=== PATIENT | female | born 1985 | race Caucasian/White ===

== ENCOUNTER 2016-07-19 06:27 | Emergency (ER) | payer OTHER ==
--- NOTE | ~2016-07-19 | EKG ---
PATIENT: CARLY CARDOSO UNIT #: [id number] Ventricular Rate: 104 BPM Atrial Rate: 117 BPM P-R Interval: 124 ms QRS Duration: 78 ms Q-T Interval: 336 ms QTC Calculation(Bezet): 441 ms P [place]: 60 degrees Calculated R [place]: 70 degrees Calculated T [place]: 63 degrees Diagnosis Line: Sinus tachycardia Diagnosis Line: Nonspecific ST abnormality Inferior leads Lateral Diagnosis Line: leads Diagnosis Line: Abnormal ECG Diagnosis Line: No previous ECGs available Diagnosis Line: Confirmed by OWEN REDDY MD ([id number]) on 07/20/2016 Diagnosis Line: 3:29:16 PM INTERPRETING MD: MAUREEN MCKEON
--- NOTE | ~2016-07-19 | CR72 ---
[facility] A Service [facility] RADIOLOGY TEXT RESULTS PATIENT: CARLY CARDOSO LOCATION: [facility] : [birth year] UNIT #: [id number] AGE: [address]: Chanel Schmitz MD SEX: F ORDER DR: [id number] [facility] [address] [place], [place] [address] [id number] E MR#: [id number] #: [id number] NAME: CARLY CARDOSO : 1985 SEX: F STUDY DATE/TIME: 07/19/2016 5:52 UNIT: [facility] ROOM: STUDY DESCRIPTION: CR Chest Single View Portable Attending Physician: Chanel Schmitz M.D. Ordering Physician: Chanel Schmitz M.D. Primary Care Physician: Martha Landaverde Aprn MEDICAL IMAGING REPORT This report is preliminary unless electronic signature is present EXAM Chest x-ray portable HISTORY Shortness of air and wheezing, started tonight. History of asthma, chest congestion. COMMENT Single frontal portable view of the chest timed 0552 on 05/21/2016. COMPARISON Compared to 11/10/2013. FINDINGS Cardiac silhouette is within normal limits. There is patchy infiltrate at the left base, new from prior. There is mild interstitial edema. Mild thickening of the peribronchovascular soft tissues in general. This is also new from prior. Please correlate for clinical evidence of bronchitis with associated pneumonia or atelectasis related to mucous plugging in the setting of asthma. Heart size normal. No pleural effusion. No pneumothorax. IMPRESSION 1. Patchy airspace disease left lung base. This could be some early pneumonia or aspiration or alternatively some atelectasis due to mucous plugging in the setting of asthma. There is some interstitial prominence and thickening of the central peribronchovascular soft tissues. Followup to complete clearing recommended. Dictated by... Neeta Mancia M.D. [facility] A Service [facility] RADIOLOGY TEXT RESULTS PATIENT: CARLY CARDOSO LOCATION: [facility] : [birth year] UNIT #: [id number] AGE: [address]: Chanel Schmitz MD SEX: F ORDER DR: THIS IS AN ELECTRONICALLY VERIFIED REPORT Neeta Mancia M.D. at 07/19/2016 9:36 AM JAY JAY/monica TD: 07/19/2016 08:14 JOB #: [id number] MEDICAL IMAGING REPORT Page 1 of 1 COPY
[2016-07-19 06:16] LABS: POC - CKMB 4.1 ng/mL (0.0-7.9); POC - TROPONIN <0.05 ng/mL (<=0.05)
[2016-07-19 06:16] LABS: URINE SOURCE CLEAN CATCH
[~2016-07-19 06:27] MED LIST: ACETAMINOPHEN PO; AMOXICILLIN PO; KETOPROFEN PO; PERIDEX480 ML PO; TYLENOL #3 PO; ZITHROMAX1 G/PKT PO
[2016-07-19 06:29] LABS: BASOPHIL# 0.1 X10e3 (0-0.3); BASOPHIL% 0.9 % (0-2.5); EOSINOPHIL# 0.1 X10e3 (0-0.7); EOSINOPHIL% 0.6 % (0.0-7.0); HEMATOCRIT 41.6 % (35.0-45.0); HEMOGLOBIN 13.7 gm/dL (12.0-16.0); LYMPHOCYTE# 2.9 X10e3 (1.0-3.5); LYMPHOCYTE% 27.4 % (17.0-45.0); MEAN CELL VOLUME 84.7 FL (83-96); MEAN CORPUSCULAR HEMOGLOBIN 27.8 PG (28-34); MEAN CORPUSCULAR HGB CONC 32.9 g/dL (30-36); MEAN PLATELET VOLUME 8.9 FL (6.5-11.5); MONOCYTE# 0.5 X10e3 (0-1.0); MONOCYTE% 4.6 % (3.0-12.0); NEUTROPHIL# 7.1 X10e3 (1.5-7.1); NEUTROPHIL% 66.5 % (40-75); PLATELET COUNT 422 X10e3 (140-420); RED BLOOD COUNT 4.92 X10e (3.90-5.30); RED CELL DISTRIBUTION WIDTH 14.3 % (11.0-15.5); WHITE BLOOD COUNT 10.7 X10e3 (4.0-10.5)
[2016-07-19 06:31] LABS: DIFF IND NO
[2016-07-19 06:38] LABS: CULTURE INDICATED? YES; URBCS1 AUWI 0-2 /[HPF] (0-2); URINE APPEARANCE CLEAR; URINE BACTERIA AUWI NEG (NEGATIVE); URINE BILIRUBIN NEG (NEG); URINE BLOOD NEG (NEG); URINE COLOR YELLOW; URINE GLUCOSE NEG (NEG); URINE KETONE NEG (NEG); URINE LEUKOCYTE ESTERASE TRACE (NEG); URINE NITRATE NEG (NEG); URINE PH 5.5 (5-8); URINE PROTEIN NEG (NEG); URINE SPECIFIC GRAVITY 1.005 (1.003-1.035); URINE SQUAMOUS EPITHELIAL CELL NONE SEEN /[HPF]; URINE UROBILINOGEN 0.2 MG/DL (NEG)
[2016-07-19 06:42] LABS: AMPHETAMINE POS (NEG); BARBITURATES NEG (NEG); BENZODIAZEPINES POS (NEG); COCAINE NEG (NEG); MARIJUANA POS (NEG); OPIATES POS (NEG); TRICYCLIC ANTIDEPRESSANTS NEG (NEG); U METHADONE NEG (NEG)
[2016-07-19 06:59] LABS: ALBUMIN SERUM 4.4 g/dL (3.5-5.0); BILIRUBIN, DIRECT 0.1 mg/dL (0.0-0.2); BILIRUBIN,INDIRECT 0.2 mg/dL (0.0-0.9); BILIRUBIN,TOTAL 0.3 mg/dL (0.2-2.0); BUN/CREATININE RATIO 8.88; CALCIUM SERUM 9.9 mg/dL (8.4-10.2); CREATININE SERUM 0.9 mg/dL (0.6-1.4); GLOM FILT RATE Estimated 86.5 mL/min (>60); POTASSIUM 3.1 mmol/L (3.5-5.1); PROTEIN TOTAL SERUM 8.3 g/dL (6.0-8.3)
== END 2016-07-19 07:14 | disposition home or self-care (01) ==
LOC: CED 06:27
PROVIDERS: Emergency Medicine
DX: F19.10 Other psychoactive substance abuse, uncomplicated (principal)
CPT/HCPCS: 36415; 71010; 80048; 80076; 80307; 81003; 82553; 84484; 84703; 85025; 87086; 93005; 99284

== ENCOUNTER 2016-07-31 16:02 | Emergency (ER) | payer OTHER ==
[2016-07-31 16:48] LABS: INFLUENZA A NEG (NEG); INFLUENZA B NEG (NEG)
== END 2016-07-31 17:00 | disposition home or self-care (01) ==
LOC: CFTX 16:02
PROVIDERS: Physician Assistant
DX: J06.9 Acute upper respiratory infection, unspecified (principal); J45.909 Unspecified asthma, uncomplicated; F31.9 Bipolar disorder, unspecified; G47.00 Insomnia, unspecified; F17.210 Nicotine dependence, cigarettes, uncomplicated; Z98.51 Tubal ligation status
CPT/HCPCS: 87651; 87804; 99282

== ENCOUNTER 2016-10-12 21:13 | Emergency (ER) | payer OTHER ==
--- NOTE | ~2016-10-12 | CR252 ---
[facility] A Service of [facility] RADIOLOGY TEXT RESULTS PATIENT: CARLY CARDOSO LOCATION: [facility] : [birth year] UNIT #: [id number] AGE: [address]: Kevin Gonzales MD SEX: F ORDER DR: [id number] [facility] [address] [place], [place] [address] [id number] E MR#: [id number] Acc #: [id number] NAME: CARLY CARDOSO : 1985 SEX: F STUDY DATE/TIME: 10/12/2016 23:33 UNIT: [facility] ROOM: STUDY DESCRIPTION: CR Tibia and Fibula 2 Views Lt Attending Physician: Misha Gonzales M.D. Ordering Physician: Ed Doctor [id number] [facility] Primary Care Physician: Martha Landaverde Aprn MEDICAL IMAGING REPORT This report is preliminary unless electronic signature is present EXAM Left tib-fib series INDICATION Left lower leg pain and swelling after a fall yesterday. PROCEDURE 2 views of the left tibia and fibula. COMPARISON None FINDINGS No acute fracture or dislocation. IMPRESSION No acute findings. Dictated by... Misha Joaquin M.D. THIS IS AN ELECTRONICALLY VERIFIED REPORT Misha Joaquin M.D. at 10/13/2016 10:10 PM Duong TD: 10/13/2016 09:27 JOB #: [id number] MEDICAL IMAGING REPORT Page 1 of 1 COPY
== END 2016-10-13 01:50 | disposition home or self-care (01) ==
LOC: CED 21:13
DX: S80.12XA Contusion of left lower leg, initial encounter (principal); F17.210 Nicotine dependence, cigarettes, uncomplicated; F31.9 Bipolar disorder, unspecified; J45.909 Unspecified asthma, uncomplicated; F20.9 Schizophrenia, unspecified; Y04.8XXA Assault by other bodily force, initial encounter; Y92.009 Unspecified place in unspecified non-institutional (private) residence as the place of occurrence of the external cause
CPT/HCPCS: 73590; 84703; 99283